=== PATIENT | male | born 2000 | race Hispanic/Latino ===

== ENCOUNTER 2022-11-05 20:16 | Emergency (ER) | payer MEDICAID, SELFPAY ==
[2022-11-05 20:17] VITALS: BP 139/77; PULSE 91; RESP 16; TEMP 36.1; O2SAT 100; BMI 20.5
--- NOTE | 2022-11-05 21:12 | CT_ITS ---
STUDY: CT BRAIN WITHOUT CONTRAST REASON FOR EXAM: Male, 22 years old. Seizure RADIATION DOSAGE (If Supplied By Facility): CTDIvol = ( 44.99 ) mGy, DLP = ( 829.85 ) mGycm TECHNIQUE: Transaxial CT imaging of the brain was performed without administration of intravenous contrast material. Individualized dose optimization techniques were used for this CT. COMPARISON: No relevant priors. FINDINGS: Normal soft tissue structures. Normal calvarium. Normal size ventricles and extra-axial spaces for the patient''s age. Normal white matter tracts of the cerebral hemispheres. Normal basal ganglia and thalami. Normal brainstem. Normal cerebellum. There is no intracranial hemorrhage. There are no findings of an acute ischemic infarction. Normal visualized paranasal sinuses. CT/Brain/Head without Contrast IMPRESSION: Normal unenhanced CT scan of the brain. Electronically Signed: Jose Guajardo MD at 21:58 EDT ,
[2022-11-05 22:01] LABS: Bacteria 0 SEEN /hpf (None Seen); Mucous, Urine 0 SEEN /hpf (<or=2+); Red Blood Cells-Urine 0 SEEN /hpf (0-5); Squamous Epithelial Cells - UA 0 SEEN /hpf (0-5); White Blood Cells 0 SEEN /hpf (0-5)
[2022-11-05 22:02] LABS: Color, Urine Yellow (Yellow); Glucose, Dipstick Normal (Normal); Ketone-Dipstick 5 mg/dl (Negative); Leukocyte Esterase-Dipstick Negative /ul (Negative); Nitrite-Dipstick Negative (Negative); Occult Blood-Urine Negative /ul (Negative); Protein-Dipstick 15 mg/dl (Negative); Specific Gravity, Urine 1.025 (1.002-1.030); Urine Bilirubin Dipstick Negative (Negative); Urine Clarity Clear (Clear); Urine Urobilinogen 1 mg/dl (Normal)
[2022-11-05 22:02] LABS: Absolute Lymphocyte Count 2.26 X10^3/uL (0.83-4.51); Absolute Neutrophil Count 5.4 X10^3/uL (2.0-7.7); Basophil# 0.06 X10^3/uL; Basophil% 0.7 % (0-1); Eosinophils% 2.3 % (0-5); Hematocrit 43.6 % (40-54); Hemoglobin 14.3 g/dL (13.0-16.5); Lymphocyte # 2.26 X10^3/ul (0.83-4.51); Lymphocyte % 26.2 % (19-41); Mean Corp Hgb Conc 32.8 g/dL (32-36); Mean Corpuscular Hgb 28.8 pg (27.0-32.0); Mean Corpuscular Volume 87.9 fL (80-94); Mean Platelet Vol. 9.2 fl (6.2-12.0); Monocyte# 0.69 X10^3/uL; NRBC Flagged by Analyzer 0 % (0-5); Neutrophil # 5.41 X10^3/uL (2.7-7.7); Neutrophil % 62.7 % (47-70); Platelet Count 279 K/mm3 (150-450); RBC Distribution Width CV 12.9 % (11.6-14.6); RBC Distribution Width SD 41.8 fl (35.1-43.9); Red Blood Count 4.96 M/mm3 (4.6-6.2); White Blood Count 8.6 K/mm3 (4.4-11.0)
[2022-11-05 22:29] VITALS: BP 107/59; PULSE 57; RESP 17; O2SAT 99
[2022-11-05 22:31] LABS: ALB/GLOB Ratio 1.2 RATIO (0.9-2.4); AST(SGOT) 12 U/L (15-37); Alanine Aminotransfer ALT/SGPT 18 U/L (16-61); Albumin, Serum 3.8 g/dL (3.2-5.0); Alkaline Phosphatase 81 U/L (45-117); Anion Gap 7 (5-15); BUN 16 mg/dL (7-18); Calcium,Total 8.7 mg/dL (8.5-10.1); Chloride 108 mmol/L (98-107); Creatinine, Serum 1.07 mg/dL (0.70-1.30); EST Glomerular Filtration Rate 93 mL/min (>60); Est Glom Filt Rate - Afr Amer 113 mL/min (>60); Estimated Creatinine Clearance 109.79 ml/min; Globulin 3.2 g/dL (2.2-4.2); Glucose 109 mg/dL (74-106); Lipase 16 U/L (13-75); Sodium Level 141 mmol/L (136-145)
[2022-11-05 23:36] VITALS: BP 115/61; PULSE 58; RESP 14; O2SAT 100
--- NOTE | 2022-11-06 00:50 | EDS_ITS ---
HPI History of Present Illness Chief Complaint: Seizure Informant: patient Onset/Context/Timing Onset: Days (10) Context: Sudden Onset Timing: Intermittent and Lasts (1 to 5 minutes) Quality: Tonic-clonic Location: Generalized Worsened by: Nothing Relieved by: Nothing Narrative Narrative: Patient presents with a questionable seizure. Patient states he has had several of these episodes over the past 10 days. Patient states he does not remember any of the events around the episodes. Significant other states that patient becomes stiff and then starts flopping. She states these episodes last between 1 and 5 minutes. Patient denies biting his tongue. Patient denies losing control of his bowels or bladder. Patient states that his mom has a history of stress-induced seizures. Patient states he is under a lot of stress recently. PFSH PFSH no medical history Allergy/AdvReac Type Severity Reaction Status Date / Time No Known Allergies Allergy Verified 11/05/22 20:17 no surgical history Social History (Updated 11/06/22 @ 00:[address] Leopoldo Estevez, DO) Smoking Status: Never smoker Electronic Cigarette Use: with nicotine alcohol intake: current alcohol intake frequency: a few times a week substance use type: former substance user Date of last use: Years ago and marijuana ROS ROS ED Constitutional Constitutional ED: Denies chills or fever(s) Eyes Eyes: Denies blurry vision or change in vision ENT ENT ED: Denies rhinorrhea or sore throat Cardiovascular Cardiovascular: Reports chest pain; Denies palpitations Respiratory/Chest Respiratory/Chest: Denies cough or dyspnea Gastrointestinal Gastrointestinal: Reports abdominal pain and nausea; Denies vomiting Genitourinary Genitourinary ED: Reports urinary frequency; Denies dysuria or hematuria Musculoskeletal Musculoskeletal: Reports neck pain; Denies back pain Integumentary Denies abscess or rash Neurologic Neurologic: Denies headache(s) or weakness Allergic/Immunologic Allergic/Immunologic ED: Denies mouth swelling or urticaria EXAM Physical Exam Const Vital Signs: 11/05/22 20:17 11/05/22 22:29 11/05/22 23:36 Temperature 97 F L Temperature Source Temporal Pulse Rate 91 57 L 58 L Respiratory Rate 16 17 14 Blood Pressure 139/77 H 107/59 L 115/61 Blood Pressure Mean 97 75 Pulse Ox 100 99 100 Oxygen Delivery Method Room Air Positive well nourished and well developed General Appearance ED: well developed and NAD HEENT Reports moist mucous membranes Neck supple and no JVD Resp normal respiratory effort and clear to auscultation bilaterally Cardio regular rate, regular rhythm and no murmurs GI normal to inspection, nondistended, normoactive bowel sounds and non-tender Palpation: soft Extremity normal to inspection General Extremety ED: Negative for edema or tenderness General Extremity: Negative for edema Neuro oriented x3, CN's II-XII intact bilaterally and no sensory deficits noted Sensorium / Orientation: alert Motor Exam: strength 5/5 throughout Psych mental status grossly normal Skin no rashes or lesions noted MDM MDM MDM Narrative Medical decision making narrative: Differential diagnosis includes seizure disorder, syncopal episode, vasovagal episodes, pseudoseizures, hepatic disease, pancreatitis, electrolyte abnormality, and urinary tract infection. CT scan of the brain will be obtained to assess for intracranial bleeding and mass. CBC will be obtained to assess fo r leukocytosis and anemia. Comprehensive metabolic profile will be obtained to assess for hepatic function, renal function, and electrolyte abnormality. Lipase will be obtained to assess for pancreatitis. Urinalysis will be obtained to assess for urinary tract infection. History & Record Review Discussion w/independent historian: Patient and Significant other Lab Data Attestation: I reviewed the patient's lab results. Lab results narrative: CBC was reviewed and was within normal limits. Comprehensive metabolic profile was reviewed and was within normal limits. Lipase was reviewed and was normal at 16. Urinalysis was reviewed and does not show any evidence of urinary tract infection or hematuria. Labs: Laboratory Results - last 24 hr 11/05/22 11/05/22 21:48 21:54 WBC 8.6 RBC 4.96 Hgb 14.3 Hct 43.6 MCV 87.9 MCH 28.8 MCHC 32.8 RDW Std Deviation 41.8 RDW Coeff of [place] 12.9 Plt Count 279 MPV 9.2 Immature Gran % (Auto) 0.100 Neut % (Auto) 62.7 Lymph % (Auto) 26.2 [place] % (Auto) 8.0 Eos % (Auto) 2.3 Baso % (Auto) 0.7 Absolute Neuts (auto) 5.4 Absolute Lymphs (auto) 2.26 Nucleated RBC % 0 Sodium 141 Potassium 4.0 Chloride 108 H Carbon Dioxide 26.0 Anion Gap 7 BUN 16 Creatinine 1.07 Estim Creat Clear Calc 109.79 Est GFR (MDRD) Af Amer 113 Est GFR (MDRD) Non-Af 93 BUN/Creatinine Ratio 15.0 Glucose 109 H Calcium 8.7 Total Bilirubin 0.50 AST 12 L ALT 18 Alkaline Phosphatase 81 Total Protein 7.0 Albumin 3.8 Globulin 3.2 Albumin/Globulin Ratio 1.2 Lipase 16 Urine Color Yellow Urine Clarity Clear Urine pH 6.0 Ur Specific [place] 1.025 Urine Protein 15 H Urine Glucose (UA) Normal Urine Ketones 5 H Urine Occult Blood Negative Urine Nitrite Negative Urine Bilirubin Negative Urine Urobilinogen 1 H Ur Leukocyte Esterase Negative Urine RBC 0 SEEN Urine WBC 0 SEEN Ur Squamous Epith Cells 0 SEEN Urine Bacteria 0 SEEN Urine Mucus 0 SEEN Radiography Diagnostic Testing: Clinical Impression(s) from Imaging Studies Brain CT 11/05/22 21:12 IMPRESSION: Normal unenhanced CT scan of the brain. Electronically Signed: Jose Guajardo MD at 21:58 EDT , CT scan of the brain was obtained. There is no acute intracranial abnormality. This was interpreted by the radiologist and was also independently reviewed by myself. Treatment and Re-Evaluation :: Patient had no seizure activity here in the emergency department. Patient was advised of his findings. Patient was instructed to follow-up with his primary care physician in 5 to 7 days for further evaluation. Patient was advised he may need to have further testing done as an outpatient that is unable to be performed here in the emergency department. Patient and his significant other understood and were agreeable with the plan. All questions were answered. Discharge Plan Triage Chief Complaint: Seizure ED Provider: Leopoldo Estevez Dx/Rx/DC Orders Clinical Impression: Syncope and collapse Instructions: ED Seizure New Onset Unknown ... Stand Alone Forms: ED Work / School Excuse Primary Care Provider: Care Physician,No Primary Referrals: Galina Valdez MD [Med Staff - Vocational Evaluator] - 3-5 Days Care Physician,No Primary [Primary Care Provider] - Disposition Disposition: Home, Self Care Discharge Date/Time: 11/05/22 23:41
== END 2022-11-05 23:41 | disposition home or self-care (01) ==
PROVIDERS: Emergency Provider Emergency Medicine; Visit Provider Emergency Medicine
DX: R55 Syncope and collapse (principal); F17.290 Nicotine dependence, other tobacco product, uncomplicated
CPT/HCPCS: 70450; 80053; 81001; 83690; 85025; 99284; A4216

== ENCOUNTER 2022-12-23 07:56 | Emergency (ER) | payer MEDICAID, SELFPAY ==
[2022-12-23 07:57] VITALS: BP 132/82; PULSE 54; RESP 14; TEMP 36.4; O2SAT 100; BMI 19.8
--- NOTE | 2022-12-23 08:25 | ED.VIS.GI ---
HPI HPI - GI History of Present Illness Chief Complaint: Diarrhea Narrative Narrative: Male with history of diarrhea for the last couple of weeks. He states intermittently there is been a little bit of blood and mucus in the stool. No recent antibiotics use. No fevers or chills. No nausea or vomiting. He reports that there is something that protrudes from his rectum intermittently when he is having bowel movements. He states this is because he has to strain most of the time. He admits to a poor diet. Past medical history. Patient not have any abdominal pain PFSH PFSH Allergy/AdvReac Type Severity Reaction Status Date / Time No Known Allergies Allergy Verified 12/23/22 07:59 Social History Smoking Status: Never smoker Electronic Cigarette Use: with nicotine alcohol intake: current alcohol intake frequency: a few times a week substance use type: former substance user Date of last use: Years ago and marijuana ROS ROS ED Constitutional Constitutional ED: Denies chills, fever(s) or sweats Eyes Eyes: Denies blurry vision or change in vision ENT ENT ED: Denies ear pain or sore throat Cardiovascular Cardiovascular: Denies chest pain, palpitations or racing heartbeat Respiratory/Chest Respiratory/Chest: Denies cough, dyspnea or sputum Gastrointestinal Gastrointestinal: Reports diarrhea and other Details: Amount of blood in stool ; Denies abdominal pain, constipation, nausea or vomiting Genitourinary Genitourinary ED: Denies dysuria, hematuria or urinary frequency Musculoskeletal Musculoskeletal: Denies arthralgias, myalgias or neck pain Integumentary Denies abscess, Abrasions or rash Neurologic Neurologic: Denies headache(s), paresthesias or weakness Psychiatric Psychiatric: Denies anxiety, depression, suicidal ideation or suicidal thoughts Endocrine Endocrinology: Denies polydipsia or polyuria EXAM Physical Exam Const Vital Signs: 12/23/22 07:57 Temperature 97.6 F L Temperature Source Temporal Pulse Rate 54 L Respiratory Rate 14 Blood Pressure 132/82 H Blood Pressure Mean 98 Pulse Ox 100 Oxygen Delivery Method Room Air General Appearance ED: Negative for pallor HEENT Reports normocephalic Eyes PERRL and EOMs intact bilaterally Neck no lymphadenopathy and supple Resp normal respiratory effort Cardio regular rate and regular rhythm GI normal to inspection, nondistended, normoactive bowel sounds and non-distended GI Narrative: Goal exam no excoriations, hemorrhoids internally or externally. Palpation: soft Narrative: Deferred Neuro oriented x3 and CN's II-XII intact bilaterally Sensorium / Orientation: alert Motor Exam: strength 5/5 throughout Psych mental status grossly normal Attitude: No agitated Skin no rashes or lesions noted and no wounds General Skin Exam: Negative for jaundice or pallor MDM MDM MDM Narrative Medical decision making narrative: Patient presenting with concern for blood in stool. Had diarrhea for couple of weeks. Admits to poor diet. CBC and BMP were obtained to assess for hemoglobin, platelets, white blood cell count, electrolytes and renal function. These were all essentially normal. Rectal exam also normal. Mended the patient follow a healthier diet with high-fiber foods. He is to cut out fast food and return precautions were discussed. Impression: 1. Blood in stool 2. Rectal pain Lab Data Labs: Laboratory Results - last 24 hr 12/23/22 08:30 WBC 7.3 RBC 4.99 Hgb 14.3 Hct 44.8 MCV 89.8 MCH 28.7 MCHC 31.9 L RDW Std Deviation 43.7 RDW Coeff of [place] 13.4 Plt Count 277 MPV 9.2 Immature Gran % (Auto) 0.300 Neut % (Auto) 62.3 Lymph % (Auto) 26.0 [place] % (Auto) 8.7 Eos % (Auto) 2.0 Baso % (Auto) 0.7 Absolute Neuts (auto) 4.6 Absolute Lymphs (auto) 1.90 Nucleated RBC % 0 Sodium 140 Potassium 4.0 Chloride 110 H Carbon Dioxide 27.0 Anion Gap 3 L BUN 16 Creatinine 0.87 Estim Creat Clear Calc 130.34 Est GFR (MDRD) Af Amer 143 Est GFR (MDRD) Non-Af 118 BUN/Creatinine Ratio 18.4 Glucose 106 Calcium 8.7 Discharge Plan Triage Chief Complaint: Diarrhea ED Provider: John Serrano Dx/Rx/DC Orders Primary Care Provider: Care Physician,No Primary Referrals: Care Physician,No Primary [Primary Care Provider] -
[2022-12-23 08:56] LABS: Anion Gap 3 (5-15); BUN 16 mg/dL (7-18); BUN/Creat Ratio 18.4 RATIO (10-20); Calcium,Total 8.7 mg/dL (8.5-10.1); Chloride 110 mmol/L (98-107); Creatinine, Serum 0.87 mg/dL (0.70-1.30); EST Glomerular Filtration Rate 118 mL/min (>60); Est Glom Filt Rate - Afr Amer 143 mL/min (>60); Estimated Creatinine Clearance 130.34 ml/min; Glucose 106 mg/dL (74-106); Sodium Level 140 mmol/L (136-145)
[2022-12-23 08:58] LABS: Absolute Neutrophil Count 4.6 X10^3/uL (2.0-7.7); Basophil# 0.05 X10^3/uL; Basophil% 0.7 % (0-1); Eosinophil# 0.15 X10^3/uL; Hematocrit 44.8 % (40-54); Hemoglobin 14.3 g/dL (13.0-16.5); Mean Corp Hgb Conc 31.9 g/dL (32-36); Mean Corpuscular Hgb 28.7 pg (27.0-32.0); Mean Corpuscular Volume 89.8 fL (80-94); Mean Platelet Vol. 9.2 fl (6.2-12.0); Monocyte# 0.64 X10^3/uL; Monocyte% 8.7 % (0-10); NRBC Flagged by Analyzer 0 % (0-5); Neutrophil # 4.56 X10^3/uL (2.7-7.7); Neutrophil % 62.3 % (47-70); Platelet Count 277 K/mm3 (150-450); RBC Distribution Width CV 13.4 % (11.6-14.6); RBC Distribution Width SD 43.7 fl (35.1-43.9); Red Blood Count 4.99 M/mm3 (4.6-6.2); White Blood Count 7.3 K/mm3 (4.4-11.0)
== END 2022-12-23 09:19 | disposition home or self-care (01) ==
PROVIDERS: Emergency Provider Student in an Organized Health Care Education/Training Program; Visit Provider Student in an Organized Health Care Education/Training Program
DX: K92.1 Melena (principal)
CPT/HCPCS: 80048; 85025; 99282; A4216